=== PATIENT | female | born 1995 | race Hispanic/Latino ===

== ENCOUNTER 2017-09-08 08:07 | Outpatient (CLI) | payer OTHER ==
[2017-09-08] MEDS ORDERED: Gadobenate Dimeglumine 529 MG/1 ML (20ML VIAL) ONE (09:00)
--- NOTE | 2017-09-08 09:30 | MRI ---
MRI BRAIN WITH AND WITHOUT CONTRAST: DATE: 09/08/17. HISTORY: A 22-year-old female with G43.109, migraine headache with aura; R51, intractable, worsening headaches . TECHNIQUE: Multiple sequences obtained in axial, sagittal, and coronal planes; pre and post IV injection of gado linium-based contrast agent: 19 mL of MultiHance. FINDINGS: The ventricles are normal in size and configuration. There is no major intraaxial signal abnormality , restricted diffusion, abnormal intraaxial enhancement, mass, midline shift or any other mass effect , recent intraaxial hemorrhage, or extraaxial fluid collection. IMPRESSION: Normal. jn[] POS: [email or web address]
== END 2017-09-08 08:08 | disposition home or self-care (01) ==
LOC: SCSMRI 08:07
PROVIDERS: ATTEND Student in an Organized Health Care Education/Training Program
DX: G43.109 Migraine with aura, not intractable, without status migrainosus (principal)
CPT/HCPCS: 70553; A9579